=== PATIENT | female | born 2000 | race Caucasian/White ===

== ENCOUNTER 2021-03-12 19:15 | Emergency (ER) | payer MEDICAID ==
[~2021-03-12] VITALS: Ht 157.5 cm; Wt 53.1 kg
[2021-03-12 19:45] VITALS: BP 104/60
--- NOTE | 2021-03-12 19:53 | NUR ---
AMBULATED TO LOBBY. URINE COLLECTED
--- NOTE | 2021-03-12 20:16 | NUR ---
PT SEEN IN TRIAGE BY DR. HUERTA
[2021-03-12 20:41] LABS: BASOPHILS % (AUTO) 0.3 % (0.0-2.0); EOSINOPHILS % (AUTO) 0.4 % (0.0-4.0); HEMATOCRIT 33.9 % (36-48); HEMOGLOBIN 11.2 g/dL (12.0-16.0); LYMPHOCYTES # (AUTO) 1.3 K/uL (2.5-16.5); LYMPHOCYTES % (AUTO) 12.7 % (20.5-51.1); MEAN CORPUSCULAR HEMOGLOBIN 29 pg (27-31); MEAN CORPUSCULAR HGB CONC 33 g/dL (33-37); MEAN CORPUSCULAR VOLUME 86.6 fL (80-94); MONOCYTES # (AUTO) 0.7 K/uL (0.8-1.0); MONOCYTES % (AUTO) 6.4 % (1.7-9.3); NEUTROPHILS # (AUTO) 8.5 K/uL (1.8-7.7); NEUTROPHILS % (AUTO) 80.2 % (42.2-75.2); PLATELET COUNT (AUTO) 309 K/uL (140-450); RED BLOOD CELL COUNT(AUTO) 3.91 MIL/uL (4.20-5.40); RED CELL DISTRIBUTION WIDTH 19.7 % (11.6-13.7); WHITE BLOOD COUNT (AUTO) 10.6 K/uL (4.5-11.0)
[2021-03-12 20:57] LABS: ALBUMIN 3.2 g/dL (3.4-5.0); ANION GAP 11.1 (8-16); CARBON DIOXIDE 27.5 mmol/L (21-32); CREATININE 0.7 mg/dL (0.6-1.3); POTASSIUM 3.6 mmol/L (3.5-5.1); TOTAL BILIRUBIN 0.1 mg/dL (0.0-1.0)
[2021-03-12 21:02] LABS: APPEARANCE,URINE SL CLOUDY (CLEAR); BILIRUBIN,URINE NEGATIVE (NEGATIVE); BLOOD, URINE 3+ (NEGATIVE); COLOR,URINE YELLOW (YELLOW); LEUKOCYTE ESTERASE ,URINE 2+ (NEGATIVE); NITRITE, URINE POSITIVE (NEGATIVE); PH,URINE 7.5 (5.0-9.0); UGLUCOSE NEGATIVE (NEGATIVE)
[2021-03-12 21:15] LABS: RBC,URINE 0-5 /HPF (0-5)
--- NOTE | 2021-03-12 21:32 | NUR ---
PATIENT RETURNED TO LOBBY VIA W/C AFTER US.
[2021-03-12] MEDS ORDERED: CEPH-588 PO (23:15)
--- NOTE | 2021-03-12 23:34 | NUR ---
PT TAKEN TO BED 8
--- NOTE | 2021-03-12 23:45 | NUR ---
TO BED 8 WITH C/O VAGINAL BLEED X1 DAY. PT STATES WAS SEEN AT [facility] X2 WEEKS AGO FOR SIMILAR COMPLAINT AND WAS DIAGNOSED WITH SUBCHORIONIC HEMORRHAGE AND PLACED ON BED REST. APPROX 10 WEEKS . [facility]X- ANEMIA NKA
--- NOTE | 2021-03-12 23:54 | NUR ---
Dr. Melchor examining patient.
--- NOTE | 2021-03-13 00:10 | NUR ---
SPEAKING ON PHONE, IS TEARFUL
[2021-03-13 00:22] VITALS: BP 104/60
--- NOTE | 2021-03-13 00:22 | NUR ---
Patient discharged with v/s stable. Written and verbal after care instructions given and explained. Patient verbalized understanding. Ambulatory with steady gait. All questions addressed prior to discharge. Advised to follow up with PMD.
== END 2021-03-13 00:22 | disposition home or self-care (01) ==
LOC: MED 19:15
DX: O20.0 Threatened abortion (principal); D64.9 Anemia, unspecified; Z3A.08 8 weeks gestation of pregnancy; Z79.899 Other long term (current) drug therapy
CPT/HCPCS: 36415; 76801; 80053; 81001; 81025; 84702; 85025; 86900; 86901; 87086; 99284; Q0092

== ENCOUNTER 2021-08-03 10:15 | Emergency (ER) | payer MEDICAID ==
[~2021-08-03] VITALS: Ht 157.5 cm; Wt 52.2 kg
[~2021-08-03 10:15] MED LIST: CEPH-588 PO
[2021-08-03 10:27] VITALS: BP 106/69
[2021-08-03 11:01] LABS: BASOPHILS % (AUTO) 0.4 % (0.0-2.0); EOSINOPHILS % (AUTO) 0.2 % (0.0-4.0); HEMATOCRIT 36.5 % (36-48); HEMOGLOBIN 12.7 g/dL (12.0-16.0); LYMPHOCYTES # (AUTO) 1.4 K/uL (2.5-16.5); LYMPHOCYTES % (AUTO) 18.6 % (20.5-51.1); MEAN CORPUSCULAR HEMOGLOBIN 31 pg (27-31); MEAN CORPUSCULAR HGB CONC 35 g/dL (33-37); MEAN CORPUSCULAR VOLUME 89.6 fL (80-94); MONOCYTES # (AUTO) 0.6 K/uL (0.8-1.0); MONOCYTES % (AUTO) 7.7 % (1.7-9.3); NEUTROPHILS # (AUTO) 5.6 K/uL (1.8-7.7); NEUTROPHILS % (AUTO) 73.1 % (42.2-75.2); PLATELET COUNT (AUTO) 320 K/uL (140-450); RED BLOOD CELL COUNT(AUTO) 4.08 MIL/uL (4.20-5.40); RED CELL DISTRIBUTION WIDTH 13.6 % (11.6-13.7); WHITE BLOOD COUNT (AUTO) 7.7 K/uL (4.5-11.0)
[2021-08-03] MEDS ORDERED: CEPH-588 PO (12:58)
--- NOTE | 2021-08-03 13:15 | NUR ---
Patient discharged with v/s stable. Written and verbal after care instructions ABOUT THREATENED MISCARRIAGE AND URINARY TRACT INFECTION given and explained. Patient alert, oriented and verbalized understanding of instructions. Ambulatory with steady gait. All questions addressed prior to discharge. ID band removed. Patient advised to follow up with PMD. Rx of KFLEX given. Patient educated on indication of medication including possible reaction and side effects. Opportunity to ask questions provided and answered.
--- NOTE | 2021-08-03 13:15 | NUR ---
PT SEEN AND TREATED BY DR MALCOLM, NO NURSING INTERVENTIONS PROVIDED.
== END 2021-08-03 13:15 | disposition home or self-care (01) ==
LOC: MED 10:15
DX: O20.0 Threatened abortion (principal); O23.41 Unspecified infection of urinary tract in pregnancy, first trimester; Z3A.01 Less than 8 weeks gestation of pregnancy; Z79.899 Other long term (current) drug therapy; Z98.890 Other specified postprocedural states
CPT/HCPCS: 36415; 76817; 81002; 81025; 84702; 85025; 86900; 86901; 99284; Q0092